=== PATIENT | female | born 1955 | race African-American/Black ===

== ENCOUNTER 2022-08-01 07:54 | Day surgery (SDC) | payer OTHER ==
[2022-07-26 15:24] VITALS: BMI 23.6
[2022-08-01] MEDS ORDERED: ROPIVACAINE HCL 0.5% 30ML VIAL ONE (09:16)
[2022-08-01] MEDS ORDERED: DEXAMETHASONE SOD PHOSPHATE/PF 10 MG/ML SDV ONE (09:16)
[2022-08-01] MEDS ORDERED: MIDAZOLAM HCL 2 MG/2 ML SINGLE DOSE VIAL ONE (09:16)
[2022-08-01] MEDS ORDERED: BUPIVACAINE HCL/EPINEPHRINE/PF 30 ML VIAL IJ ONE (09:22)
[2022-08-01] MEDS ORDERED: PROPOFOL 20 ML ONE ×2 (09:44→10:39)
[2022-08-01] MEDS ORDERED: ceFAZolin SODIUM 1 GM VIAL ONE (09:52)
[2022-08-01] MEDS ORDERED: ONDANSETRON 4 MG/2 ML VIAL ONE (09:52)
[2022-08-01] MEDS ORDERED: DEXAMETHASONE SOD PHOSPHATE 4 MG/1 ML VIAL ONE (09:52)
[2022-08-01] MEDS ORDERED: EPINEPHrine 1:1,000 1,000 MCG/ML ML ONE (10:28)
[2022-08-01] MEDS ORDERED: oxyCODONE HCL 5 MG TABLET PO PRN (12:20)
[2022-08-01] MEDS ORDERED: ONDANSETRON 4 MG/2 ML VIAL IVPUSH PRN (12:20)
[2022-08-01 12:34] VITALS: RESP 18; TEMP 97.9
[2022-08-01 13:06] VITALS: BP 122/76; PULSE 70
== END 2022-08-01 13:25 | disposition home or self-care (01) ==
LOC: FASU 07:54
PROVIDERS: ATTEND Orthopaedic Surgery
PROC: 0RNJ4ZZ Release Right Shoulder Joint, Percutaneous Endoscopic Approach (ICD-10-PCS; principal; 2022-08-01 10:00)
PROC: 0RBJ4ZZ Excision of Right Shoulder Joint, Percutaneous Endoscopic Approach (ICD-10-PCS; 2022-08-01 10:00)
DX: M75.101 Unspecified rotator cuff tear or rupture of right shoulder, not specified as traumatic (principal); M66.811 Spontaneous rupture of other tendons, right shoulder; M65.811 Other synovitis and tenosynovitis, right shoulder
CPT/HCPCS: 94760; C1713

== ENCOUNTER 2024-03-18 08:57 | Day surgery (SDC) | payer OTHER ==
[2024-03-09 15:21] VITALS: BMI 40.5
[~2024-03-18 08:57] MED LIST: LACTATED RINGERS SOLUTION 1,000 ML IV SCH; ONDANSETRON 4 MG/2 ML VIAL IVPUSH PRN
[2024-03-18] MEDS ORDERED: MIDAZOLAM HCL 2 MG/2 ML SINGLE DOSE VIAL ONE ×3 (10:13→11:16)
[2024-03-18] MEDS ORDERED: BUPIVACAINE HCL/PF 2.5 MG/ML - 30 ML VIAL IJ ONE (10:31)
[2024-03-18] MEDS ORDERED: BUPIVACAINE LIPOSOME/PF (EXPAREL) 266 MG/20 ML VIAL ONE (10:31)
[2024-03-18] MEDS ORDERED: BUPIVACAINE HCL/PF 0.5% (5 MG/ML) 30 ML VIAL IJ ONE (10:31)
[2024-03-18] MEDS ORDERED: PROPOFOL 40 ML ONE (10:55)
[2024-03-18] MEDS ORDERED: SUCCINYLCHOLINE CHLORIDE 200 MG/10 ML SYRINGE ONE (10:56)
[2024-03-18] MEDS ORDERED: TRANEXAMIC ACID 1000 MG/10 ML VIAL ONE ×2 (12:30)
[2024-03-18] MEDS ORDERED: PROPOFOL 20 ML ONE (12:44)
[2024-03-18] MEDS ORDERED: ACETAMINOPHEN INJECTION 100 ML ONE (13:33)
[2024-03-18] MEDS ORDERED: MAGNESIUM HYDROX 2400MG/30ML ORAL SUSPENSION 30 ML CUP PO PRN (13:44)
[2024-03-18] MEDS: ACETAMINOPHEN 1000 MG/100 ML BAG IVPB SCH (14:00)
[2024-03-18 14:43] VITALS: RESP 18
[2024-03-18] MEDS: CEFAZOLIN SODIUM 2 GM in DEXTROSE 5%-WATER 100 ML IVPB ONE (15:32)
[2024-03-18] MEDS: MAG HYDROX/AL HYDROX/SIMETH 30 ML UNIT-DOSE CUP PO PRN (16:17)
[2024-03-18] MEDS: oxyCODONE HCL 5 MG TABLET PO PRN ×2 (16:19→20:24)
[2024-03-18] MEDS: CEFAZOLIN SODIUM 2 GM in DEXTROSE 5%-WATER 100 ML IVPB SCH (20:02)
[2024-03-18] MEDS: DEXAMETHASONE 4 MG TABLET (FP) PO SCH (22:34)
[2024-03-18] MEDS: FAMOTIDINE 20 MG TABLET PO SCH (22:34)
[2024-03-18] MEDS: SENNOSIDES/DOCUSATE COMBO (SENNA PLUS) TABLET (UD) PO SCH (22:34)
[2024-03-18] MEDS: CELECOXIB 100 MG CAPSULE PO SCH (22:34)
[2024-03-18] MEDS: ASPIRIN 81 MG CHEWABLE TABLETS PO SCH (22:34)
[2024-03-19] MEDS ORDERED: HYDROmorphone HCL 2 MG TABLET PO ONE (04:15)
[2024-03-19] MEDS: HYDROmorphone HCl 2 MG/ML VIAL IVPUSH ONE (04:21)
[2024-03-19] MEDS: ONDANSETRON 4 MG/2 ML VIAL IVPUSH PRN (04:48)
[2024-03-19] MEDS ORDERED: TRANEXAMIC ACID 1000 MG/10 ML VIAL IVPB ONE (08:09)
[2024-03-19] MEDS ORDERED: oxyCODONE HCL 5 MG TABLET PO PRN ×2 (08:12→08:14)
[2024-03-19] MEDS: TRANEXAMIC ACID - 1,000 MG in SODIUM CHLORIDE 50 ML IVPB ONE (08:25)
[2024-03-19] MEDS: oxyCODONE HCL 5 MG TABLET PO PRN (08:25)
[2024-03-19] MEDS: ACETAMINOPHEN 500 MG TABLET (FP) PO SCH (11:28)
[2024-03-19 14:43] VITALS: BP 140/63; PULSE 61; TEMP 97.5
== END 2024-03-19 17:25 | disposition home or self-care (01) ==
LOC: FASUSAT 08:57 → FM/S 14:35 → FASUSAT 03-19 17:25
PROVIDERS: ATTEND Orthopaedic Surgery
PROC: 0SRC0J9 Replacement of Right Knee Joint with Synthetic Substitute, Cemented, Open Approach (ICD-10-PCS; principal; 2024-03-18 11:39)
DX: M17.11 Unilateral primary osteoarthritis, right knee (principal)
CPT/HCPCS: 27447; C1776; 73560-TC-RT-FY; 94760; 97010-GP; 97116-GP; 97162-GP; J0131